=== PATIENT | male | born 1995 | race Caucasian/White ===

== ENCOUNTER 2017-05-19 21:44 | Emergency (ER) | payer OTHER ==
[~2017-05-19] VITALS: Ht 180.3 cm; Wt 86.2 kg
[~2017-05-19 21:44] MED LIST: 'PARAFON FORTE500 M1 PO; BENADRYL25 M1 PO; CYCLOBENZAPRINE10 MG PO; Elimite 5%60 GM T; NAPROSYN500 MG PO; PREDNISONE10 MG PO
[2017-05-19 22:02] VITALS: BP 147/68
[2017-05-19 22:17] LABS: BILIRUBIN NEGATIVE (NEGATIVE); BLOOD 3+ (NEGATIVE); CLARITY SL CLOUDY (CLEAR); COLOR YELLOW (YELLOW); GLUCOSE NEGATIVE (NEGATIVE); KETONE TRACE (NEGATIVE); LEUKO ESTERASE NEGATIVE (NEGATIVE); NITRITE NEGATIVE (NEGATIVE); PROTEIN TRACE (NEGATIVE); SPECIFIC GRAVITY 1.025 (1.005-1.030)
[2017-05-19 22:23] LABS: BACTERIA 1+; EPITHELIAL CELLS 0-2; RBC TNTC rbc/hpf (0-2); URINE REFLEX COMMENT YES (NO); WBC 0-2 wbc/hpf (0-5)
== END 2017-05-19 23:42 | disposition home or self-care (01) ==
LOC: ED 21:44
PROVIDERS: Nurse Practitioner Family
DX: Z20.2 Contact with and (suspected) exposure to infections with a predominantly sexual mode of transmission (principal); F17.200 Nicotine dependence, unspecified, uncomplicated

== ENCOUNTER 2017-07-08 21:43 | Emergency (ER) | payer OTHER ==
[2017-07-08 21:47] VITALS: BP 150/100
== END 2017-07-08 23:32 | disposition home or self-care (01) ==
LOC: ED 21:43
DX: S90.31XA Contusion of right foot, initial encounter (principal); F17.200 Nicotine dependence, unspecified, uncomplicated; W22.8XXA Striking against or struck by other objects, initial encounter; Y93.9 Activity, unspecified; Y92.9 Unspecified place or not applicable; Y99.9 Unspecified external cause status

== ENCOUNTER 2018-06-07 13:31 | Emergency (ER) | payer SELFPAY ==
[~2018-06-07] VITALS: Ht 180.3 cm; Wt 81.6 kg
[2018-06-07 13:33] VITALS: BP 133/81
[2018-06-07] MEDS ORDERED: AUGMENTIN 875875 MG PO (14:21)
== END 2018-06-07 14:27 | disposition home or self-care (01) ==
LOC: ED 13:31
DX: H66.91 Otitis media, unspecified, right ear (principal); J32.9 Chronic sinusitis, unspecified

== ENCOUNTER 2018-06-09 15:45 | Emergency (ER) | payer SELFPAY ==
[~2018-06-09] VITALS: Ht 177.8 cm; Wt 81.6 kg
[~2018-06-09 15:45] MED LIST changes: +AUGMENTIN 875875 MG PO
[2018-06-09 15:48] VITALS: BP 125/83
[2018-06-09] MEDS ORDERED: AMOXICILLIN500 M2 PO (16:17)
== END 2018-06-09 16:25 | disposition home or self-care (01) ==
LOC: ED 15:45
DX: J02.9 Acute pharyngitis, unspecified (principal); H66.93 Otitis media, unspecified, bilateral

== ENCOUNTER 2018-11-25 18:21 | Emergency (ER) | payer SELFPAY ==
[~2018-11-25] VITALS: Ht 177.8 cm; Wt 86.2 kg
[~2018-11-25 18:21] MED LIST changes: +AMOXICILLIN500 M2 PO; +NORCO 5-325 TA1 EACH PO; +ZOFRAN ODT4 MG SL
[2018-11-25 18:23] VITALS: BP 147/80
== END 2018-11-25 18:41 | disposition home or self-care (01) ==
LOC: ED 18:21
DX: L98.9 Disorder of the skin and subcutaneous tissue, unspecified (principal); Z79.2 Long term (current) use of antibiotics

== ENCOUNTER 2019-07-13 05:40 | Emergency (ER) | payer MEDICAID ==
[~2019-07-13] VITALS: Ht 180.3 cm; Wt 93.0 kg
[2019-07-13 05:41] VITALS: BP 156/84
[2019-07-13] MEDS ORDERED: CLINDAMYCIN HC300 MG PO (06:45)
[2019-07-13] MEDS ORDERED: Motrin,Rufen800 MG PO (06:45)
== END 2019-07-13 06:37 | disposition home or self-care (01) ==
LOC: ED 05:40
DX: K04.7 Periapical abscess without sinus (principal); K02.9 Dental caries, unspecified

== ENCOUNTER 2019-09-16 17:31 | Emergency (ER) | payer OTHER ==
[~2019-09-16] VITALS: Ht 180.3 cm; Wt 95.3 kg
[~2019-09-16 17:31] MED LIST changes: +CLINDAMYCIN HC300 MG PO; +Motrin,Rufen800 MG PO
[2019-09-16 17:33] VITALS: BP 149/82
[2019-09-16] MEDS ORDERED: AUGMENTIN 875-875 MG PO (18:36)
== END 2019-09-16 19:52 | disposition home or self-care (01) ==
LOC: ED 17:31
DX: J02.9 Acute pharyngitis, unspecified (principal); F17.200 Nicotine dependence, unspecified, uncomplicated; Z79.2 Long term (current) use of antibiotics; Z79.899 Other long term (current) drug therapy

== ENCOUNTER 2019-09-22 19:17 | Emergency (ER) | payer OTHER ==
[~2019-09-22] VITALS: Ht 180.3 cm; Wt 95.3 kg
[2019-09-22 19:17] VITALS: BP 126/67
[~2019-09-22 19:17] MED LIST changes: +AUGMENTIN 875-875 MG PO
== END 2019-09-22 21:05 | disposition home or self-care (01) ==
LOC: ED 19:17
DX: S46.912A Strain of unspecified muscle, fascia and tendon at shoulder and upper arm level, left arm, initial encounter (principal); Z79.2 Long term (current) use of antibiotics; Z79.899 Other long term (current) drug therapy; Z87.442 Personal history of urinary calculi; X58.XXXA Exposure to other specified factors, initial encounter; Y93.89 Activity, other specified; Y92.89 Other specified places as the place of occurrence of the external cause; Y99.8 Other external cause status

== ENCOUNTER 2020-05-22 19:49 | Emergency (ER) | payer OTHER ==
[~2020-05-22] VITALS: Ht 180.3 cm; Wt 99.8 kg
[2020-05-22 22:25] VITALS: BP 140/80
== END 2020-05-22 22:30 | disposition home or self-care (01) ==
LOC: ED 19:49
DX: B34.9 Viral infection, unspecified (principal); Z79.899 Other long term (current) drug therapy; Z20.828 Contact with and (suspected) exposure to other viral communicable diseases

== ENCOUNTER 2020-09-10 00:40 | Emergency (ER) | payer OTHER ==
[~2020-09-10] VITALS: Ht 180.3 cm; Wt 104.3 kg
[2020-09-10 00:43] VITALS: BP 151/82
[2020-09-10] MEDS ORDERED: AUGMENTIN 875875 MG PO (01:28)
== END 2020-09-10 01:49 | disposition home or self-care (01) ==
LOC: ED 00:40
DX: L03.012 Cellulitis of left finger (principal); F17.200 Nicotine dependence, unspecified, uncomplicated

== ENCOUNTER 2021-02-14 21:45 | Emergency (ER) | payer OTHER ==
[~2021-02-14] VITALS: Ht 180.3 cm; Wt 99.8 kg
[2021-02-14 22:13] VITALS: BP 122/82
[2021-02-14] MEDS ORDERED: VIBRAMYCIN100 MG PO (23:06)
== END 2021-02-14 23:27 | disposition home or self-care (01) ==
LOC: ED 21:45
DX: L08.9 Local infection of the skin and subcutaneous tissue, unspecified (principal); F17.200 Nicotine dependence, unspecified, uncomplicated; Z79.2 Long term (current) use of antibiotics; Z87.442 Personal history of urinary calculi

== ENCOUNTER 2021-12-26 02:23 | Emergency (ER) | payer OTHER ==
[~2021-12-26] VITALS: Ht 180.3 cm; Wt 104.3 kg
[~2021-12-26 02:23] MED LIST changes: +VIBRAMYCIN100 MG PO
[2021-12-26 03:10] VITALS: BP 108/69
[2021-12-26 03:57] LABS: BASO % 0.4 % (0.0-1.0); EOS # 0.2 10*3/uL (0.0-0.4); EOS % 2.4 % (1.0-4.0); LYMPH % 29.9 % (27.0-41.0); MEAN CELL VOLUME 85.5 fl (80.0-94.0); MEAN CORPUSCULAR HGB 28.2 pg (27.0-31.0); MEAN PLATELET VOLUME 9.4 fl (9.6-12.3); MONO # 0.7 10*3/uL (0.1-1.0); MONO % 6.8 % (3.0-9.0); NEUT # 6.1 10*3/uL (2.3-7.9); NEUT % 60.1 % (47.0-73.0); PLATELET COUNT AUTOMATED 330 10*3/uL (130-400); RED CELL DISTRI WIDTH 13.6 % (0-14.5); WHITE BLOOD COUNT 10.1 10*3/uL (4.8-10.8)
[2021-12-26 04:14] LABS: ALKALINE PHOSPHATASE 65 U/L (45-117); BUN 13 mg/dl (7-24); CHLORIDE 109 mmol/L (98-107); CREATININE 0.84 mg/dL (0.70-1.30); POTASSIUM 4.1 mmol/L (3.5-5.1); SGOT/AST 19 IU/L (3-35); SGPT/ALT 35 U/L (12-78); SODIUM 138 mmol/L (136-145); TOTAL PROTEIN 7.8 gm/dL (6.4-8.2)
[2021-12-26 05:05] LABS: BILIRUBIN Negative (Negative); BLOOD Negative (Negative); CLARITY Clear (Clear); COLOR Yellow (Yellow); GLUCOSE Negative (Negative); KETONE Negative (Negative); LEUKO ESTERASE Negative (Negative); NITRITE Negative (Negative); UROBILINOGEN 0.2 E.U./dl (0.0-1.0)
[2021-12-26 05:15] LABS: RBC 0-2 rbc/hpf (0-2); WBC 0-2 wbc/hpf (0-5)
== END 2021-12-26 06:29 | disposition home or self-care (01) ==
LOC: ED 02:23
PROVIDERS: Emergency Medicine
DX: R10.9 Unspecified abdominal pain (principal); R11.0 Nausea; F17.200 Nicotine dependence, unspecified, uncomplicated

== ENCOUNTER 2022-06-04 12:23 | Emergency (ER) | payer OTHER ==
[~2022-06-04] VITALS: Wt 99.8 kg
[2022-06-04 12:27] VITALS: BP 142/74
[2022-06-04] MEDS ORDERED: CYCLOBENZAPRINE10 MG PO (13:55)
[2022-06-04] MEDS ORDERED: NAPROXEN250 MG PO (13:55)
[2022-06-04] MEDS ORDERED: TYLENOL325 M1 PO (13:55)
== END 2022-06-04 14:13 | disposition home or self-care (01) ==
LOC: ED 12:23
DX: S39.012A Strain of muscle, fascia and tendon of lower back, initial encounter (principal); X58.XXXA Exposure to other specified factors, initial encounter; Y93.89 Activity, other specified; Y92.89 Other specified places as the place of occurrence of the external cause; Y99.8 Other external cause status

== ENCOUNTER 2022-07-09 14:12 | Emergency (ER) | payer OTHER ==
[~2022-07-09] VITALS: Wt 99.8 kg
[~2022-07-09 14:12] MED LIST changes: +NAPROXEN250 MG PO; +TYLENOL325 M1 PO
[2022-07-09 14:14] VITALS: BP 153/99
[2022-07-09] MEDS ORDERED: Motrin,Rufen800 MG PO (14:31)
[2022-07-09] MEDS ORDERED: AMOXICILLIN500 M2 PO (14:31)
== END 2022-07-09 14:49 | disposition home or self-care (01) ==
LOC: ED 14:12
DX: K08.89 Other specified disorders of teeth and supporting structures (principal)

== ENCOUNTER → 2022-08-29 | Outpatient (CLI) | payer OTHER ==
[2022-08-29 17:21] LABS: HEMATOCRIT 43.2 % (42.0-52.0); MEAN CELL VOLUME 85.9 fl (80.0-94.0); MEAN CORPUSCULAR HGB 29.4 pg (27.0-31.0); MEAN CORPUSCULAR HGB CONC 34.3 g/dl (33.0-37.0); MEAN PLATELET VOLUME 9.4 fl (9.6-12.3); RED BLOOD COUNT 5.03 10*6/uL (4.50-5.90); RED CELL DISTRI WIDTH 13.7 % (0-14.5); WHITE BLOOD COUNT 10.6 10*3/uL (4.8-10.8)
[2022-08-29 17:44] LABS: ALKALINE PHOSPHATASE 64 U/L (45-117); BUN 8 mg/dl (7-24); CHLORIDE 110 mmol/L (98-107); CHOLESTEROL 205 mg/dL (<200); CREATININE 0.79 mg/dL (0.70-1.30); POTASSIUM 3.8 mmol/L (3.5-5.1); SGOT/AST 18 IU/L (3-35); SGPT/ALT 38 U/L (12-78); SODIUM 140 mmol/L (136-145); TOTAL PROTEIN 7.9 gm/dL (6.4-8.2); TRIGLYCERIDES 599 mg/dl (<150)
== END | disposition home or self-care (01) ==
LOC: LAB 16:57
PROVIDERS: ATTEND Family Medicine
DX: Z00.00 Encounter for general adult medical examination without abnormal findings (principal)

== ENCOUNTER 2023-03-06 03:42 | Emergency (ER) | payer OTHER ==
[~2023-03-06] VITALS: Ht 180.3 cm; Wt 108.9 kg
[2023-03-06 03:52] VITALS: BP 159/95
[2023-03-06] MEDS ORDERED: METHOCARBAMOL500 M1 PO ×2 (03:54)
[2023-03-06] MEDS ORDERED: NAPROXEN250 MG PO ×2 (03:54)
== END 2023-03-06 04:14 | disposition home or self-care (01) ==
LOC: ED 03:42
DX: S29.012A Strain of muscle and tendon of back wall of thorax, initial encounter (principal); R05.9 Cough, unspecified; X58.XXXA Exposure to other specified factors, initial encounter; Y93.89 Activity, other specified; Y92.009 Unspecified place in unspecified non-institutional (private) residence as the place of occurrence of the external cause; Y99.8 Other external cause status

== ENCOUNTER → 2023-03-17 | Outpatient (CLI) | payer OTHER ==
[~2023-03-17] MED LIST changes: +METHOCARBAMOL500 M1 PO
[2023-03-17 11:39] LABS: HEMATOCRIT 44.7 % (42.0-52.0); MEAN CELL VOLUME 85.1 fl (80.0-94.0); MEAN PLATELET VOLUME 9.5 fl (9.6-12.3); RED BLOOD COUNT 5.25 10*6/uL (4.50-5.90); RED CELL DISTRI WIDTH 13.6 % (0-14.5); WHITE BLOOD COUNT 7.9 10*3/uL (4.8-10.8)
[2023-03-17 12:18] LABS: ALKALINE PHOSPHATASE 59 U/L (46-116); BUN 6 mg/dl (9-23); CHLORIDE 107 mmol/L (98-107); CHOLESTEROL 184 mg/dL (<200); FREE T4 1.25 ng/dl (0.89-1.76); LDL CHOLESTEROL 85 mg/dL (9-159); POTASSIUM 3.9 mmol/L (3.4-5.1); SGPT/ALT 23 U/L (10-49); TOTAL PROTEIN 7.9 gm/dL (6.0-8.0); TRIGLYCERIDES 345 mg/dl (<150)
== END | disposition home or self-care (01) ==
LOC: LAB 10:40
PROVIDERS: ATTEND Family Medicine
DX: E78.00 Pure hypercholesterolemia, unspecified (principal); G47.33 Obstructive sleep apnea (adult) (pediatric); R53.83 Other fatigue; M54.50 Low back pain, unspecified

== ENCOUNTER 2025-08-30 18:04 | Emergency (ER) | payer SELFPAY ==
[~2025-08-30] VITALS: Ht 180.3 cm; Wt 102.1 kg
[2025-08-30 18:14] VITALS: BP 128/85
[2025-08-30] MEDS ORDERED: AVPAK AZITHROM250 M1 PO (18:45)
[2025-08-30] MEDS ORDERED: VENT7GM INH (18:45)
== END 2025-08-30 19:32 | disposition home or self-care (01) ==
LOC: ED 18:04
DX: J40 Bronchitis, not specified as acute or chronic (principal)